=== PATIENT | female | born 2005 | race Caucasian/White ===

== ENCOUNTER 2023-06-05 09:23 | Outpatient (CLI) | payer SELFPAY ==
--- NOTE | 2023-06-05 10:00 | CRLHL7_ITS ---
For Patients: As a result of the Century Cures Act, medical imaging exams and procedure reports are released immediately into your electronic medical record. You may view this report before your referring provider. If you have questions, please contact your health care provider. INDICATION: First trimester scan, establish dates. COMPARISON: None. TECHNIQUE: Real-time lanza-scale imaging of the pelvis was performed. FINDINGS: Right ovary is normal measuring 2.8 x 2.1 x 2.2 cm. Normal left ovary measuring 4.2 x 2.3 x 2.1 cm. Corpus luteal cyst left ovary measuring 1.8 x 1.3 x 1.2 cm. Small fluid collection within the endometrial canal may represent a small gestational sac. This measures 3.3 cm, 5 weeks 0 days. No pole. No yolk sac. Trace physiologic free fluid in the cul-de-sac. IMPRESSION: No pole is present. There may be a small gestational sac in the endometrial canal. Dictated by Sabas Mack MD @ 06/05/2023 11:01:56 AM (Electronically Signed)
== END 2023-06-05 09:24 | disposition home or self-care (01) ==
LOC: US 09:26
PROVIDERS: Visit Provider Advanced Practice Midwife
DX: Z34.91 Encounter for supervision of normal pregnancy, unspecified, first trimester (principal)
CPT/HCPCS: 76817; T1013

== ENCOUNTER 2023-06-05 11:08 | Outpatient (CLI) | payer SELFPAY | END 2023-06-05 11:09 | disposition home or self-care (01) | PROVIDERS: Visit Provider Advanced Practice Midwife | DX: Z34.91 Encounter for supervision of normal pregnancy, unspecified, first trimester (principal); Z3A.01 Less than 8 weeks gestation of pregnancy | CPT/HCPCS: 86592; 86703; 86704; 86706; 86762; 86787; 86803; 86850; 86900; 86901; 87086; 87186; 87340 ==

== ENCOUNTER 2023-06-19 09:11 | Outpatient (CLI) | payer SELFPAY ==
--- NOTE | 2023-06-19 09:15 | CRLHL7_ITS ---
For Patients: As a result of the Century Cures Act, medical imaging exams and procedure reports are released immediately into your electronic medical record. You may view this report before your referring provider. If you have questions, please contact your health care provider. INDICATION: First trimester scan, establish dates. COMPARISON: None. TECHNIQUE: Real-time lanza-scale imaging of the pelvis was performed. FINDINGS: Sonographic imaging demonstrates a single living intrauterine gestation. The embryo demonstrates a regular cardiac rate measuring 128 beats per minute. The embryo`s crown-rump length measurement of 0.7 cm corresponds to a gestational age of 6 weeks 4 days with a sonographic due date of February 08, 2024. There is a normal-appearing yolk sac measuring 3.3 mm. There are no gross abnormalities noted within the embryo at this early state of development. The placenta has not yet developed. The gestational sac has a normal appearance. Subchorionic hemorrhage along superior margin of the gestational sac measuring 1.5 x 0.7 x 0.9 cm. The amount of fluid within the sac appears appropriate for gestational age. The cervix is closed. The myometrium appears normal. The ovaries are of normal size. The right ovary measures 3.5 x 1.8 x 1.5 cm. The left ovary measures 3.9 x 1.9 x 2.5 cm. Corpus luteum cyst of on the left measuring 2.6 x 1.6 x 1.9 cm. There are no suspicious fluid collections noted in the cul-de-sac. IMPRESSION: Normal first trimester OB ultrasound exam. Gestational age calculated at 6 weeks 4 days with a sonographic due date of February 08, 2024. Dictated by Miki Melgoza MD @ 06/19/2023 12:11:09 PM (Electronically Signed)
== END 2023-06-19 09:12 | disposition home or self-care (01) ==
LOC: US 09:11
PROVIDERS: Visit Provider Advanced Practice Midwife
DX: Z34.91 Encounter for supervision of normal pregnancy, unspecified, first trimester (principal); Z3A.01 Less than 8 weeks gestation of pregnancy
CPT/HCPCS: 76817; T1013

== ENCOUNTER 2023-07-17 11:03 | Outpatient (CLI) | payer MEDICAID, SELFPAY ==
[2023-07-17 15:49] LABS: Chlamydia DNA Amplified* NOT DETECTED (No Detected); GC DNA Amplified* NOT DETECTED (No Detected)
== END 2023-07-17 11:04 | disposition home or self-care (01) ==
LOC: NFLDREF 11:03
PROVIDERS: Visit Provider Advanced Practice Midwife
DX: Z34.01 Encounter for supervision of normal first pregnancy, first trimester (principal)
CPT/HCPCS: 87086; 87491; 87591

== ENCOUNTER 2023-09-19 08:18 | Outpatient (CLI) | payer MEDICAID, SELFPAY ==
--- NOTE | 2023-09-19 08:45 | CRLHL7_ITS ---
For Patients: As a result of the Century Cures Act, medical imaging exams and procedure reports are released immediately into your electronic medical record. You may view this report before your referring provider. If you have questions, please contact your health care provider. INDICATION: Evaluate anatomy. COMPARISON: 06.19.23, 06.05.23 TECHNIQUE: Real time lanza scale imaging of the fetus was performed as well as color Doppler analysis of the umbilical vessels. FINDINGS: Sonographic imaging demonstrates a single living intrauterine gestation. Fetus demonstrates a regular cardiac rate of 154 beats per minute. Fetus has a variable position. The placenta lies anteriorly without evidence of placenta previa. The edge of the placenta is located 8.4 cm from the internal cervical os. Amniotic fluid volume appears normal. Single deepest vertical pocket: 5.5 cm. The cervix is closed and measures 3.0 cm in length. The composite ultrasound gestational age is calculated at 20 weeks 3 days with an estimated sonographic due date of 02/03/2024. The estimated weight is 374 grams which lies at the 79th %. The following biometric measurements were obtained: Biparietal diameter: 4.7 cm/20 weeks 2 days 57th% Head circumference: 17.5 cm/20 weeks 0 days 37th% Abdominal circumference: 16.2 cm/21 weeks 2 days 80th% Femur length: 3.3 cm/20 weeks 2 days 49th% The HC/AC ratio measures: 1.08 range (1.07-1.25) On anatomic survey, there is a normal appearance of the cerebral ventricles, cavum septi pellucidi, cisterna magna and cerebellum. The nose, lips, and facial profile appear normal. The cervical, thoracic and lumbar spine are well visualized and appear normal. There is a normal four-chamber heart view and the left and right ventricular outflow tracts appear normal. The diaphragm and stomach appear normal. The kidneys and bladder also appear normal. There is a normal three-vessel cord and cord insertion site. The four extremities appear normal. IMPRESSION: Normal OB ultrasound exam with concordance of clinical and sonographic dating. No intrinsic abnormalities noted on anatomic survey. Dictated by Sabas Mack MD @ 09/19/2023 10:29:11 AM (Electronically Signed)
== END 2023-09-19 08:19 | disposition home or self-care (01) ==
LOC: US 08:19
PROVIDERS: Visit Provider Advanced Practice Midwife
DX: Z34.92 Encounter for supervision of normal pregnancy, unspecified, second trimester (principal); Z3A.20 20 weeks gestation of pregnancy
CPT/HCPCS: 76805; T1013

== ENCOUNTER 2023-11-15 11:13 | Outpatient (CLI) | payer MEDICAID, SELFPAY | END 2023-11-15 11:14 | disposition home or self-care (01) | LOC: NFLDREF 11-20 11:49 | PROVIDERS: Visit Provider Advanced Practice Midwife | DX: Z34.83 Encounter for supervision of other normal pregnancy, third trimester (principal) | CPT/HCPCS: 86592; T1013 ==

== ENCOUNTER 2023-11-20 07:51 | Outpatient (CLI) | payer MEDICAID, SELFPAY | END 2023-11-20 07:52 | disposition home or self-care (01) | LOC: NFLDREF 12:06 | PROVIDERS: Visit Provider Advanced Practice Midwife | DX: R73.09 Other abnormal glucose (principal) | CPT/HCPCS: 82951; 82952 ==

== ENCOUNTER 2023-12-20 10:24 | Outpatient (CLI) | payer MEDICAID, SELFPAY ==
[2023-12-20 10:43] VITALS: PULSE 76; O2SAT 100
--- NOTE | 2023-12-20 10:43 | US_ITS ---
Patient: PEPPER THOMPSON Facility:?[facility] [place] Patient ID:?[id number] Site Patient ID:?[id number]. Site :?2003 Study:?US-Extremity Left LEV-12/20/2023 11:15:15 AM Ordering Physician:CARLO STEARNS Final Report: INDICATION: Leg pain and swelling TECHNIQUE: Ultrasound venous duplex lower left extremity. Compression venous exam was performed using lanza-scale, color Doppler, and spectral Doppler analysis. COMPARISON: None. FINDINGS: Sonographic imaging demonstrates the left common femoral, deep femoral, superficial femoral, popliteal, posterior tibial and greater saphenous and the contralateral right common femoral veins to be fully compressible with normal color Doppler blood flow. IMPRESSION: Normal left lower extremity venous ultrasound, no sign of deep venous thrombosis. Dictated by Twan Crain MD @ 12/20/2023 11:54:09 AM Signed by:?Twan Crain MD @12/20/2023 11:54:09 AM (Electronic Signature)
[2023-12-20 10:48] VITALS: BP 120/67; PULSE 77
--- NOTE | 2023-12-20 11:10 | PC.OBNST ---
NST Note NST Note Start: 12/20/23 10:29 Freq: ONCE Status: Active Protocol: Document 12/20/23 11:08 VERNA (Rec: 12/20/23 11:10 VERNA [email or web address]) NST Note 1 Para (# of births) 0 EDC 02/05/24 Gestational Age In Weeks & Days 33 Weeks & 2 Days High Risk Factors Diabetes - Gestational Diet Controlled Patient Presented with Complaint(s) of Pain,Other Other Complaints Pt. sent over to OB for further eval for complaint of Left lower leg/calf pain and generalized dizziness. Reactive Yes Appropriate for Gestational Age Yes ANGELI Mccarty Date 12/20/23 Reactive Yes Appropriate for Gestational Age Yes ANGELI Frausto Date 12/20/23 OB NST charge Yes Complete NST Note via Write Note Yes The provider's electronic signature indicates the NST is reactive/appropriate for gestational age. *Note to provider: If an addendum is required, open the patient's chart and click on the note under the Nurse/Allied Health tab.
== END 2023-12-20 11:38 | disposition home or self-care (01) ==
LOC: OB OUT 10:26 → OB 10:27
PROVIDERS: Visit Provider Advanced Practice Midwife
DX: O26.893 Other specified pregnancy related conditions, third trimester (principal); M79.605 Pain in left leg; O24.419 Gestational diabetes mellitus in pregnancy, unspecified control; Z3A.33 33 weeks gestation of pregnancy
CPT/HCPCS: 59025; 93971; G0463

== ENCOUNTER 2024-01-10 09:55 | Outpatient (CLI) | payer MEDICAID, SELFPAY ==
--- NOTE | 2024-01-10 10:15 | US_ITS ---
Patient: PEPPER THOMPSON Facility:?[facility] Patient ID:?[id number] Site Patient ID:?[id number]. Site :?2003 Study:?US-OB Pelvis OB F/U GROWTH-01/10/2024 11:01:54 AM Ordering Physician:?NIGEL MYLES CNM Final Report: HISTORY: growth. Gestational diabetes mellitus. New onset of IUGR. COMPARISON: Ob ultrasound from 09/19/2023. TECHNIQUE: Ultrasound examination of the is performed with transabdominal technique. A biophysical profile was also obtained. FINDINGS: A single intrauterine gestation is seen in cephalic presentation with regular cardiac activity at 145 beats per minute. The placenta is anterior and to the right and is free of the cervical os. The placental grade is 2 and the amniotic fluid volume is normal. Single deepest vertical pocket: Normal at 4.9 cm. BPD: 8.5 cm 34 weeks 2 days HC: 31.3 cm 35 weeks 0 days AC: 30.9 cm 34 weeks 6 days FL: 6.3 cm 32 weeks 5 days The estimated age by ultrasound is 34 weeks 2 days, with an estimated date of delivery of 02/19/2024. This represents a decrease in rate of growth compared with the clinical age of 36 weeks 2 days and the previous ultrasound. The estimated date of delivery has been extended by 2 weeks 2 days The ultrasound ratios are normal. The estimated weight of 2400 grams is at the 9th percentile based on the clinical dates. The findings are that of symmetric intrauterine growth retardation. The umbilical artery Doppler ratio of 2.9 is normal. The biophysical profile score is 8 out of a total possible 8, with no points off. IMPRESSION: 1. Single intrauterine gestation in cephalic presentation with regular cardiac activity. 2. Estimated gestational age is 34 weeks 2 days. 3. There has been a decrease in rate of growth, with the estimated date of delivery extended by 2 weeks 2 days. 4. Estimated weight of 2400 grams is at the 9th percentile based on the clinical dates. 5. The findings are that of symmetric intrauterine growth retardation. 6. The umbilical artery Doppler ratio of 2.9 is normal. 7. The biophysical profile score is 8 out of a total possible 8, with no points off. Dictated by Parker Keith MD @ 01/10/2024 8:40:10 PM Signed by:?Parker Keith MD @01/10/2024 8:40:10 PM (Electronic Signature
== END 2024-01-10 09:56 | disposition home or self-care (01) ==
PROVIDERS: Visit Provider Advanced Practice Midwife
DX: O24.419 Gestational diabetes mellitus in pregnancy, unspecified control (principal); Z3A.34 34 weeks gestation of pregnancy
CPT/HCPCS: 76816; 76819; 76820; 87081; 87653; T1013

== ENCOUNTER 2024-01-15 16:55 | Outpatient (CLI) | payer MEDICAID, SELFPAY ==
--- NOTE | 2024-01-15 17:00 | US_ITS ---
Patient: PEPPER THOMPSON Facility:?[facility] Patient ID:?[id number] Site Patient ID:?[id number]. Site :?2003 Study:?US-OB Pelvis OB BPP W/ UA DOPPLER-01/15/2024 5:35:25 PM Ordering Physician:?NIGEL MYLES CNM Final Report: INDICATION: IUGR COMPARISON: 01/10/2024 TECHNIQUE: Real time lanza scale imaging of the fetus was performed as well as color Doppler and spectral Doppler analysis of the umbilical artery. Without non-stress testing. FINDINGS: Sonographic imaging demonstrates a single living intrauterine gestation. Fetus demonstrates a regular cardiac rate of 176 beats per minute. Fetus has a vertex position. The umbilical artery demonstrates adequate diastolic blood flow. The S/D ratio measures 3.0. The amniotic fluid volume appears normal and there is a single deepest pocket measurement of 6.1 cm. The fetus was active and demonstrated normal breathing movements. There was normal flexion and extension of the trunk and extremities. IMPRESSION: Normal biophysical profile score of 8 out of 8. Dictated by Sabas Mack MD @ 01/16/2024 12:52:52 PM Signed by:?Sabas Mack MD @01/16/2024 12:52:52 PM (Electronic Signature)
== END 2024-01-15 16:56 | disposition home or self-care (01) ==
PROVIDERS: Visit Provider Advanced Practice Midwife
DX: O36.5990 Maternal care for other known or suspected poor fetal growth, unspecified trimester, not applicable or unspecified (principal)
CPT/HCPCS: 76819; 76820; T1013

== ENCOUNTER 2024-01-21 16:03 | Outpatient (CLI) | payer MEDICAID, SELFPAY ==
--- NOTE | 2024-01-21 16:00 | US_ITS ---
Patient: PEPPER THOMPSON Facility:?[facility] Patient ID:?[id number] Site Patient ID:?[id number]. Site :?2003 Study:?US-OB Pelvis OB BPP W/ UA DOPPLER-01/21/2024 4:40:04 PM Ordering Physician:NIGEL MOHAMUD CNM Final Report: OB ULTRASOUND ROSEMARY by US: 02/05/2024. GA: 37 w, 6 d. Single. INDICATION: IUGR. CERVIX: Not visualized. POSITIONING: Vertex. AMNIOTIC FLUID: 7.6 cm. BIOPHYSICAL PROFILE: Total score: 8. Gross body movements: 2. tone: 2. Respiratory activity: 2. Amniotic fluid: 2. PLACENTA: Technique: Transabdominal. PLACENTA POSITION: Anterior. DOPPLER: heart rate: 155 bpm. Umbilical artery S/D: 2.8 IMPRESSION: 1. Normal biophysical profile score of 8/8. 2. Umbilical artery S/D ratio 2.8. Rafael Garcia M.D. Body/Diagnostic Radiologist [email or web address] ERICKSON/fidelina D& Transcribed: 1:14 p.alexis kitchen/Dictated by: Rafael Garcia MD @ 01/22/2024 11:01:00 AM Signed by:?Rafael Garcia MD @01/22/2024 2:54:55 PM (Electronic Signature)
== END 2024-01-21 16:04 | disposition home or self-care (01) ==
LOC: US 16:03
PROVIDERS: Visit Provider Advanced Practice Midwife
DX: O36.5930 Maternal care for other known or suspected poor fetal growth, third trimester, not applicable or unspecified (principal); Z3A.37 37 weeks gestation of pregnancy
CPT/HCPCS: 76819; 76820; T1013

== ENCOUNTER 2024-01-22 16:31 | Inpatient (IN) | payer MEDICAID, SELFPAY ==
[2024-01-22 17:00] VITALS: PULSE 80; O2SAT 99
[2024-01-22 17:03] VITALS: BP 124/71; PULSE 78; RESP 16; TEMP 36.9
[2024-01-22 17:16] VITALS: BMI 35.7
--- NOTE | 2024-01-22 18:31 | W.PM.LDBA ---
Subjective History of Present Illness Date Seen: 01/22/24 Narrative: Patient is being admitted to Labor and Delivery for IOL for IUGR at 8.5% and GDM diet controlled. She is a 18 year old at 38.0 weeks gestation. Her full history and physical was dictated by Noreen Stover CNM on 01/16/24. Please see this for details. An in person spanish interpreter was present for the duration of our conversation. Discussed in depth induction options including Cytotec, Pitocin, AROM, Cervidil, And Cook catheter. Discussed risks and benefits of each. Recommended Cytotec or Cook given her cervical dilation in clinic, gestation and primiparous status. She would like to proceed with PO cytotec. Offered a cervical exam but she denies any contractions since her check yesterday so declines. Vertex by Sudhakar today and exam yesterday. She denies leaking fluids, discharge, or bleeding and is appreciating good movement. Discussed good sleep and encouraged Vistaril to which she is agreeable. She denies questions of concerns at this time. Specific Issues/Plans Lithuanian speaking, spanish interpreter needed Fiance': Tj H&P done by Noreen Stover CNM on 01/16/24 1. Hx irregular periods -LMP 01/19/23 with positive preg test on 05/29/23 dated by 1st trimester US 2. Asymptomatic UTI at first OB Enterobacter aerogenes treated with Cefdinir UC 07/17-neg 3. Epigastric pain from heartburn pepcid started 4. Gestational Diabetic failed 3 hour test -Growth u/s Q 4 weeks starting 32 wks -36 weeks: EFW 8.5% -40 wks: -Delivery recommended 39.0 - 40.6 weeks 5. IUGR at 36 wks EFW 8.5% -weekly BPP with dopplers -Delivery 38.0-39.0 wks COVID: declined Flu: 06/19/2023 TDAP: 01/03/2024 32wk Mental Health: 12/20/2023 34wk Hgb: 01/03/2024 OB - Problem Based A/P Additional Plan (1) Encounter for induction of labor: Status: Acute (2) IUGR (intrauterine growth restriction): Status: Acute (3) Gestational diabetes: Status: Acute Plan ASSESSMENT:? at 38.0 weeks gestation? GBS negative? complicated by IUGR and diet controlled gestational diabetes ? IOL? ?? PLAN:? 1. Reviewed risks and benefits of IOL with pitocin vs cytotec vs Cook catheter. Pt prefers PO cytotec. Pitocin to follow if needed.? 2. Candidate for analgesia of choice. Unsure what she desires for labor pain management. ? 3. Anticipate ? 4. Monitoring per Cytotec policy. 5. Encouraged to consider medicaitons for sleep overnight.? Delivery/Labor/Induction Plan Plan: induction Induction method: per misoprostol protocol OB Result Labs Blood Type: A (+) positive Rubella: immune GBS Status: negative OB Exam Physical Exam Vital signs: Temp Pulse Resp BP Pulse Ox 98.5 F 78 16 124/71 99 01/22/24 17:03 01/22/24 17:03 01/22/24 17:03 01/22/24 17:03 01/22/24 17:00 Narrative: Psychiatric:? Alert and oriented x3? HEENT:? Normocephalic, atraumatic? Neck:? Supple without adenopathy or thyromegaly? Lungs:? Clear to auscultation bilaterally? Heart:? Regular rate and rhythm, no murmur, rub or gallop? Abdomen:? Soft, nontender, and gravid? Extremities:? No edema or erythema? Detailed Labor and Delivery Exam Patient Gravid: Yes Dilation (cm): 1 (per clinic exam yesterday ) Contraction Frequency: rare and patient denies feeling Fetus (Single) Amniotic Membrane Status: intact Heart Rate Baseline: 135 Monitor Accelerations: Present Monitor Decelerations: None Machine Adjuster Leader Variability: Moderate (6-25)
[2024-01-22 18:37] VITALS: BP 137/77; PULSE 72; RESP 16; TEMP 36.9
[2024-01-22] MEDS: miSOPROStoL 25 MCG/0.25 TABLET PO ×2 (18:38→21:31)
[2024-01-22 19:13] VITALS: BP 134/77; PULSE 79; PULSE 81; O2SAT 98
[2024-01-22 21:32] VITALS: BP 136/81; PULSE 64; TEMP 36.4
[2024-01-22] MEDS: hydrOXYzine pamoate 25 MG CAPSULE 100 MG PO (22:59)
[2024-01-23] VITALS (69 sets, daily range): BP systolic 118–164; BP diastolic 61–106; PULSE 63–107; RESP 18; TEMP 36.6–37.1; O2SAT 94–100
[2024-01-23] MEDS: miSOPROStoL 25 MCG/0.25 TABLET 50 MCG PO (00:29)
[2024-01-23 06:39] LABS: Basophils Percent Auto 0.2 % (0.0-3.0); Eosinophils Percent Auto 1.7 % (0.0-7.0); Hematocrit 33.2 % (33.0-51.0); Hemoglobin* 11.1 gm/dL (12.0-16.0); Immature Granulocytes Pct Auto 0.5 %; Lymphocytes Percent Auto 22.6 % (20-44); Mean Corpuscular HGB Conc 33 gm/dL (32-36); Mean Corpuscular Hemoglobin 27 pg (26-34); Mean Corpuscular Volume 80 fL (80-100); Monocytes Percent Auto 5.7 % (0.0-11.0); Neutrophils Percent Auto 69.3 % (42.0-72.0); Platelet Count* 314 K/uL (140-440); RDW Coefficient of Variation % 15.8 % (11.5-15.5); Red Blood Count 4.13 m/uL (4.00-5.20); White Blood Count* 11.39 K/uL (4.50-11.00)
[2024-01-23 07:20] LABS: Slide Review Reflex No
--- NOTE | 2024-01-23 07:35 | PM.OBPNL ---
Subjective Date Seen: 01/23/24 Narrative: Alona is a 18 yo G1 at 38 1/7 weeks gestation here for IOL for IUGR and GDM. She is mauritian speaking. Chip Crusher Operator present for check in this morning. She is supported in labor by her partner. Her induction was started last night by cytotec. She received 3 doses over night and reports mild cramping/contractions. Objective Exam: Objective: Constitutional: Alert and oriented x3, mild distress, coping well; sleepy Vital signs stable, see nurse documentation Abdomen: gravid, contractions palpate mild with contractions and soft between Cervix: 2 cm/40%/-1 station/vertex, can still move baby up in pelvis NST: 135 bpm/moderate variability/15x15 accelerations/no decelerations/irregular contractions every 1-5 Vital Signs: Last Vital Signs Temp 97.8 F 01/23/24 04:30 Pulse 76 01/23/24 04:26 Resp 16 01/22/24 18:37 BP 118/74 01/23/24 04:26 Pulse Ox 98 01/23/24 03:49 Contractions Monitor mode: External Assessment Assessment: induction ongoing and early labor Status: Category l Heart Rate Baseline: 135 Plan Plan: ASSESSMENT:? 18 at 38.1 weeks gestation? complicated by:?IUGR and GDM Labor type: Induced, early labor? Category 1 FHR pattern.?? Labor complicated by: IUGR? GBS negative? ? PLAN:? 1. Routine intrapartum cares as ordered. Discussed IOL options at this time. Consider cytotec (already had 3 doses) versus starting pitocin. Recommend pitocin. Could consider AROM later this morning. Patient agrees with plan. 2. Monitoring per policy, continuous with pitocin? 3. Uncertain about pain options. Candidate for analgesia of choice when desired.?? 4. Patient encouraged to reposition and ambulate to promote physiologic labor and .? 6. Anticipate ?
[2024-01-23] MEDS: OXYTOCIN 30 unit/500 ML in NS 30 UNIT/500 ML BAG IVPB (08:44)
[2024-01-23] MEDS: LACTATED RINGERS 1000 ML 1,000 ML 125 ML IV (08:45)
[2024-01-23] MEDS: ONDANSETRON 2 MG/ML inj 4 MG IV (16:45)
--- NOTE | 2024-01-23 17:13 | PM.OBPNL ---
Subjective Time Seen by Provider: 16:20 Date Seen: 01/23/24 Narrative: Alona is a 18 yo G1 at 38.1 weeks here for IOL for IUGR and GDM. She is supported in labor by her partner. She has been working more to cope with contractions in the last hour. She attempted the shower/tub but is now requesting something more. She is very tense and feels like she can't relax. She is tearful and having some nausea. Her labor induction was started with 3 doses of cytotec overnight, pitocin started this morning, and AROM of clear fluid around 1345 this afternoon. Her pitocin continues to be titrated based on her contraction pattern. Her blood sugars have been stable throughout the day. Objective Exam: Objective: Constitutional: Alert and oriented x3, moderate distress, coping ok but tearful and very tense appearing Vital signs stable, see nurse documentation Abdomen: gravid, contractions palpate moderate with contractions and soft between Cervix: 4 cm/80%/-1-0 station/vertex NST: 135 bpm/moderate variability/15x15 accelerations/no decelerations/contractions every 1-4 minutes Vital Signs: Last Vital Signs Temp 98.3 F 01/23/24 15:32 Pulse 67 01/23/24 16:37 Resp 16 01/22/24 18:37 BP 155/90 H 01/23/24 16:37 Pulse Ox 100 01/23/24 17:12 Contractions Monitor mode: External Assessment Status: Category l Monitor Accelerations: Present Monitor Decelerations: None Plan Plan: ASSESSMENT:? 18 at 38.1 weeks gestation? complicated by:?IUGR and GDM Labor type: Induced, early labor? Category 1 FHR pattern.?? Labor complicated by: IUGR?and GDM Elevated BP, recheck was mild range GBS negative? ? PLAN:? 1. Routine intrapartum cares as ordered. Discussed IOL options at this time. Continue pitocin. Patient agrees with plan. Dr. Herrera is covering me while I am away from the hospital from [phone]. 2. Monitoring per policy, continuous with pitocin? 3. Uncertain about pain options. Candidate for analgesia of choice when desired.?She is now requesting epidural.? 4. Patient encouraged to reposition and ambulate to promote physiologic labor and .? 5. Elevated BP, initially severe range, repeat was mild range. MD notified. Labs ordered. 6. Anticipate ?
[2024-01-23] MEDS: ROPIVACAINE 0.2% 100 ml 100 ML 11 MG EPIDURAL (17:24)
[2024-01-23] MEDS: LIDOCAINE 2% (PF) 5 ML VIAL EPIDURAL (17:25)
[2024-01-23 17:51] LABS: Alanine Aminotransferase* 39 U/L (4-35); Aspartate Amino Transferase* 45 U/L (12-35); Blood Urea Nitrogen* 11 mg/dL (5-24); Creatinine* 0.4 mg/dL (0.5-1.5); Est. Creatinine Clearance* 284.51; Estimated Glomerular Filt Rate 145 ml/min
--- NOTE | 2024-01-23 18:05 | P.ANBPRC_ITS ---
[facility] Medical History (Updated 01/22/24 @ 18:38 by Queenie Adler CNM) Irregular menses ?N92.6 - Irregular menstruation, unspecified (ICD-10) Family History (Updated 06/05/23 @ 13:49 by Magi Stover CNM) Father Diabetes High cholesterol Social History (Updated 06/05/23 @ 13:45 by Magi Stover CNM) Narrative: SOCIAL? ? Education: senior in high school? ? Work: [employer], serving food? ? Partner: Tj? not , engaged, works at [employer]? Lives with: Tj? ? Pets: no? ? Abuse: Denies past, Safe at home with current partner ? ? ? Special Diet: Denies? ? Ok with a blood transfusion: yes? ? Culture or restoration beliefs: denies? RISK FACTORS? ? Exercise Times/wk: walks to work daily, about 20 minutes ? ? Depression/Anxiety: denies? ? Previous Treatments NA ? Therapy NA GUADALUPE: 1 PHQ 9: 4? ? Seat Belt Use: Routinely ? Smoking: Denies past/present? ?Vape, not current, quit two months ago Alcohol/day: Denies while , prior twice a month Caffeine: coffee small amount? ? Drug Use: Denies past/present? What is your current living situation?: I presently have a place to live Problems where you live: no known problems In the past 12 months, utilities in danger of being shut off: no In past 12 months, lack of transportation kept you from medical appts, meetings, work, or getting things needed for daily living: yes In the past 12 mos, have been you worried that your food would run out before you had money to buy more?: never true In the past 12 mos, the food you bought just didn't last and you didn't have money to buy more?: never true Smoking Status: Light tobacco smoker How often does anyone, including family, friends and others, physically hurt you : never How often does anyone, including family, friends and others, insult or talk down to you: never How often does anyone, including family, friends and others, threaten you with harm: never How often does anyone, including family, friends and others, scream or curse at you: never Little interest or pleasure in doing things: several days Feeling down, depressed, or hopeless: several days Meds Home Medications and Allergies Home Medications ?Medication ?Instructions ?Recorded ?Confirmed ?Type docosahexaenoic acid 200 mg 200 mg PO DAILY 06/05/23 01/22/24 History capsule ( DHA) Allergies Allergy/AdvReac Type Severity Reaction Status Date / Time avocado Allergy Severe Hives Verified 01/21/24 16:53 Results Labs Labs: Laboratory Results - last 24 hr 01/23/24 01/23/24 06:15 16:58 WBC 11.39 H RBC 4.13 Hgb 11.1 L Hct 33.2 MCV 80 MCH 27 MCHC 33 RDW Coeff of Moses 15.8 H Plt Count 314 Neut % (Auto) 69.3 Lymph % (Auto) 22.6 [place] % (Auto) 5.7 Eos % (Auto) 1.7 Baso % (Auto) 0.2 Neut # (Auto) 7.90 H Lymph # (Auto) 2.60 [place] # (Auto) 0.60 Eos # (Auto) 0.20 Baso # (Auto) 0.00 Abs Immat Gran (auto) 0.10 Imm/Tot Granulo (auto) 0.5 BUN 11 Creatinine 0.4 L Estimated Creat Clear 284.51 Estimated GFR 145 AST 45 H ALT 39 H Blood Type A Positive Antibody Screen NEGATIVE Vital Signs Vital Signs: Last Vital Signs Temp 98.4 F 01/23/24 18:01 Pulse 76 01/23/24 17:49 Resp 16 01/22/24 18:37 BP 134/72 01/23/24 17:49 Pulse Ox 99 01/23/24 17:42 Weight: 80.331 kg Height: 149.86 cm Anesthesia Procedures Epidural Insertion Patient Location: OB Start Time: 16:55 Stop Time: 17:55 Start Date: 01/23/24 Stop Date: 01/23/24 Reason for Block: procedure for pain Patient Position: sitting Performed By: Lian Irene Preanesthetic Checklist: IV checked, risks and benefits discussed, monitors and equipment checked, pre-op evaluation, timeout performed and anesthesia consent Prep: chlorhexidine gluconate Monitoring: blood pressure monitoring, continuous pulse oximetry and heart rate Approach: midline Vertebral Space: lumbar (1-5) Epidural Technique: LYNN saline Needle Type: Tuohy needle Injection Technique: continuous catheter (continuous catheter) Needle gauge: 17 Needle Length (cm): 10 cm Needle Insertion Depth (cm): 7 Catheter Gauge: 19 Catheter Type: multi-orifice Catheter at skin depth (cm): 15 Test Dose Result: negative and lidocaine 1.5% with epinephrine 1 to 200,000
[2024-01-23] MEDS: LACTATED RINGERS 1000 ML 1,000 ML 117 ML IV (18:33)
[2024-01-23] MEDS: LACTATED RINGERS 1000 ML 1,000 ML 617 ML IV (20:28)
[2024-01-23 20:41] LABS: Total Protein Urine 72 mg/dL
[2024-01-23 20:42] LABS: Creatinine Urine 12.6 mg/dL
--- NOTE | 2024-01-23 22:39 | W.PM.VAGDE_ITS ---
OB Procedure Vag Delivery Mother Details Mother Details: The patient is a 18 year-old, 1, Para 1, admitted on 01/22/24 at 38.1Days gestation. : 1 Para: 1 Weeks Gestation: 38.1 Admission Date: 01/23/24 Additional Details Amniotic Membrane Status: intact Amniotic Membrane Rupture Date: 01/23/24 Amniotic Membrane Rupture Time: 13:48 Amniotic Membrane Fluid Description: Clear Analgesia/Anesthesia Type: Epidural Waterbirth: No Pitcoin: Yes Intrapartal Events: Labor Induction and Distress Labor Onset: 14:00 Complete: 20:10 Pushin:29 Heart: heart tones during second stage were reassuring with minimal variability. Difficult to trace during pushing but good return to baseline noted between contractions. Delivery Details Delivery Date: 01/23/24 Delivery Time: 21:08 Infant Gender: Female Viability: Alive; Heart Rate Present Position at Delivery: OA Delivery Details: Patient was admitted for induction of labor for IUGR and GDM and progressed normally. She received 3 doses of Cytotec overnight, then Pitocin throughout the morning before AROM of clear fluid at 1348. She received an epidural for pain management. Pitocin was turned off around 1900 due to repetitive decelerations. Patient then progressed on her own and was complete with next exam. Patient was complete at 2009 and pushing at 2028. of a viable female at 2108 in semi- fowlers on the bed. Vertex delivered OA. No nuchal cord or shoulder. Body delivered easily and without incident. passed to mothers abdomen with a vigorous cry. Cord was clamped and cut at > 5 minutes. APGARS were 8 at one minute and 9 at five minutes respectively. Mouth was bulb suctioned. Intact placenta with a 3 vessel cord delivered spontaneously at 2123. Fundus firm. Intact. QBL 25 cc. Mother and baby stable; mother plans to breastfeed. Infant weight pending. 1 Minute Interval Total Score: 8 5 Minute Interval Total Score: 9 Additional Details Shoulder Dystocia: No Placenta Delivery Time: 21:24 Placental Delivery Description: Spontaneous Blood Loss: 25 Laceration: None Blood Loss Measurement Type: QBL Bakri Used: No Sponge/Need Count Correct: Yes Cord Vessel Description: 3 Vessels Event Summary Status: Mother and infant were stable after delivery. During recovery, patient had another elevated BP of 164/92. This is the second BP of >160/90's the patient has had, greater than 4 hours apart. Labs were drawn at first elevated BP and w ere WNL with exception of P/c ratio which was not resulted. The P/c ratio came back after delivery at 5.7, collected by catheter specimen. Plan of care was discussed with Dr. Herrera who recommends initiation of Magnesium 4g bolus with 2g maintenance. Labs ordered for every 6 hours. OB to assume care until discharge. RN will continue to monitor BP and treat per protocol as needed and notify OB. Disposition: floor
[2024-01-23] MEDS: MAGNESIUM IV 4 GM/100 ML PIGGYBACK IVPB (23:08)
[2024-01-23] MEDS: MAGNESIUM Infusion 40 GM/1,000 ML IV.SOLN IVPB (23:50)
[2024-01-24] VITALS (18 sets, daily range): BP systolic 111–144; BP diastolic 65–85; PULSE 72–102; RESP 15–18; TEMP 36.3–36.6; O2SAT 92–100
[2024-01-24 01:26] LABS: Hemoglobin* 10.4 gm/dL (12.0-16.0); Mean Corpuscular HGB Conc 34 gm/dL (32-36); Mean Corpuscular Hemoglobin 27 pg (26-34); Mean Corpuscular Volume 80 fL (80-100); Platelet Count* 283 K/uL (140-440); Red Blood Count 3.89 m/uL (4.00-5.20); White Blood Count* 17.07 K/uL (4.50-11.00)
[2024-01-24 01:31] LABS: Slide Review Reflex No
[2024-01-24 01:46] LABS: Alanine Aminotransferase* 35 U/L (4-35); Aspartate Amino Transferase* 38 U/L (12-35); Blood Urea Nitrogen* 7 mg/dL (5-24); Creatinine* 0.4 mg/dL (0.5-1.5); Est. Creatinine Clearance* 284.51; Estimated Glomerular Filt Rate 145 ml/min
[2024-01-24] MEDS: IBUPROFEN 600 MG TABLET PO ×4 (02:25→22:35)
[2024-01-24] MEDS: ACETAMINOPHEN 500 MG TABLET 1000 MG PO ×2 (06:59→17:55)
[2024-01-24 07:05] LABS: Hematocrit 31.4 % (33.0-51.0); Hemoglobin* 10.5 gm/dL (12.0-16.0); Mean Corpuscular HGB Conc 33 gm/dL (32-36); Mean Corpuscular Hemoglobin 27 pg (26-34); Mean Corpuscular Volume 81 fL (80-100); Platelet Count* 285 K/uL (140-440); Red Blood Count 3.89 m/uL (4.00-5.20); White Blood Count* 15.97 K/uL (4.50-11.00)
[2024-01-24 07:24] LABS: Slide Review Reflex No
[2024-01-24 07:26] LABS: Alanine Aminotransferase* 33 U/L (4-35); Aspartate Amino Transferase* 43 U/L (12-35); Blood Urea Nitrogen* 6 mg/dL (5-24); Creatinine* 0.4 mg/dL (0.5-1.5); Est. Creatinine Clearance* 284.51; Estimated Glomerular Filt Rate 145 ml/min
[2024-01-24] MEDS: LACTATED RINGERS 1000 ML 1,000 ML 75 ML IV ×2 (07:30→21:06)
--- NOTE | 2024-01-24 07:48 | PM.OBPNVD1 ---
OB - PN:Subj Subjective Date Seen: 01/24/24 Interval history: A little bit dizzy Patient comments OB post-: pain well controlled and tolerating diet infant status: bottle feeding status: exclusively bottle feeding Narrative: Alona is a 18 y.o. who was admitted to [facility] for IOL due to GDMA1, IUGR. ?She had an uncomplicated NVD .?She did have 2 severely elevated blood pressures more than 4 hours apart, proteinuria and given diagnosis of preeclampsia with severe features. The patient feels well, a little dizzy from medication, but has been able to stand up and walk to utilize the restroom without significant symptoms. ?The pain is well controlled with current medications. ?She has no new complaints. ?She is bottle feeding, but interested in , tried to latch baby but that has not been working well.? the patient has done well.? Vitals have been stable.? She has remained afebrile.? Has a good appetite, is tolerating a general diet. ?She is voiding without difficulty.? She is passing gas and has not had a bowel movement.?? Has Small amount of rubra lochia. Blood pressures elevated right after delivery but currently normal, no need for IV antihypertensive medications at the moment, no LIFE SCIENCES DIRECTOR irritability symptoms. OB - PN: Obj Exam Physical Exam: Vital signs: Temp Pulse Resp BP Pulse Ox O2 Del Method 97.9 F 75 16 119/81 98 Room Air 01/24/24 04:15 01/24/24 06:45 01/24/24 06:45 01/24/24 06:45 01/24/24 06:45 01/24/24 06:45 Narrative: VITAL SIGNS: As noted above. GENERAL APPEARANCE: Alert, cooperative female in no acute distress. MOOD & AFFECT: Normal. HEART: Regular rate and rhythm without murmurs. LUNGS: Lungs are clear to auscultation bilaterally. No crackles, wheezes, or rhonchi. ABDOMEN: Soft, non-distended and nontender. Well contracted uterus at umbilicus. : Normal lochia. EXTREMITIES: B/L +1 potting edema up to ankles. Well perfused. Nontender. NEURO: Intact. OB - PN: Obj Data Labs Labs: Laboratory Results - last 24 hr 01/23/24 01/23/24 01/24/24 16:58 19:55 01:15 WBC 17.07 H RBC 3.89 L Hgb 10.4 L Hct 31.0 L MCV 80 MCH 27 MCHC 34 Plt Count 283 BUN 11 7 Creatinine 0.4 L 0.4 L Estimated Creat Clear 284.51 284.51 Estimated GFR 145 145 AST 45 H 38 H ALT 39 H 35 Urine Creatinine 12.6 Protein/Creatinin Ratio 5.70 H Urine Total Protein 72 01/24/24 06:35 WBC 15.97 H RBC 3.89 L Hgb 10.5 L Hct 31.4 L MCV 81 MCH 27 MCHC 33 Plt Count 285 BUN 6 Creatinine 0.4 L Estimated Creat Clear 284.51 Estimated GFR 145 AST 43 H ALT 33 Urine Creatinine Protein/Creatinin Ratio Urine Total Protein OB - PN: A/P Delivery Assessment and Plan (1) Pre-eclampsia, severe, condition: Status: Acute Assessment and Plan: 1. Continue magnesium sulfate infusion until around 11pm tonight. Discussed with patient recommendation for continued observation at least until Saturday. Patient agrees with that plan. 2. Continue assessments every 2 hours, labs every 6 hours, close monitoring of I/O, magnesium toxicity. 3. If there is persistently elevated blood pressures throughout the day will start PO antihypertensive meds. 4. Support , patient interested in pumping. (2) Gestational diabetes: Status: Acute Assessment and Plan: FBS tomorrow morning. (3) Anemia: Status: Acute Assessment and Plan: Add oral iron today. Plan day: 1 Plan: routine care
--- NOTE | 2024-01-24 09:55 | PM.ANPOST ---
Post Anesthesia Note Post Anesthesia Note Patient seen: Inpatient Respiratory Status: adequate Cardiovascular Status: adequate Mental Status: baseline Pain: adequate Temp: baseline Anesthetic awareness: N/A Complications: none Follow care: none
[2024-01-24] MEDS: DOCUSATE SODIUM 100 MG CAPSULE PO (10:14)
[2024-01-24] MEDS: FERROUS SULFATE 325 MG TABLET PO (10:14)
--- NOTE | 2024-01-24 10:17 | PC.SOCIAL ---
Discharge planning: floor worker well service met with pt today in her room. The hospital statement services representative, Karuna, was also present for the meeting/conversation. floor worker well service provided pt with resources for [facility], as pt lives in [place] at [facility]. Pt stated that she is already connected with WIC in [facility]. Pt stated that she would like to have a public health nurse come to her house after she discharges from the hospital. floor worker well service connected with pt's nurse who will put in the referral to public health([facility]). floor worker well service also provided pt with information for [facility] [employer] and [facility] [place]. Pt is familiar with services that [facility] offers. floor worker well service also provided pt with information on parenting classes in [place] and The [employer] class that is offered through [facility]. Pt was thankful for the assistance and information. Social work to follow-up as needed.
[2024-01-24 13:46] LABS: Hematocrit 30.1 % (33.0-51.0); Hemoglobin* 10.1 gm/dL (12.0-16.0); Mean Corpuscular HGB Conc 34 gm/dL (32-36); Mean Corpuscular Hemoglobin 27 pg (26-34); Mean Corpuscular Volume 80 fL (80-100); Platelet Count* 286 K/uL (140-440); Red Blood Count 3.75 m/uL (4.00-5.20); White Blood Count* 13.48 K/uL (4.50-11.00)
[2024-01-24 14:00] LABS: Slide Review Reflex No
[2024-01-24 14:09] LABS: Alanine Aminotransferase* 37 U/L (4-35); Aspartate Amino Transferase* 50 U/L (12-35); Blood Urea Nitrogen* 7 mg/dL (5-24); Creatinine* 0.4 mg/dL (0.5-1.5); Est. Creatinine Clearance* 275.19; Estimated Glomerular Filt Rate 145 ml/min
[2024-01-24 14:19] LABS: Magnesium* 4.6 mg/dL (1.5-2.6)
[2024-01-24] MEDS: MAGNESIUM Infusion 40 GM/1,000 ML IV.SOLN IVPB (17:54)
[2024-01-24 19:44] LABS: Hematocrit 30.5 % (33.0-51.0); Hemoglobin* 10.2 gm/dL (12.0-16.0); Mean Corpuscular HGB Conc 33 gm/dL (32-36); Mean Corpuscular Hemoglobin 27 pg (26-34); Mean Corpuscular Volume 81 fL (80-100); Platelet Count* 304 K/uL (140-440); Red Blood Count 3.78 m/uL (4.00-5.20); White Blood Count* 13.78 K/uL (4.50-11.00)
[2024-01-24 20:07] LABS: Slide Review Reflex No
[2024-01-24 20:16] LABS: Alanine Aminotransferase* 39 U/L (4-35); Aspartate Amino Transferase* 49 U/L (12-35); Blood Urea Nitrogen* 8 mg/dL (5-24); Creatinine* 0.5 mg/dL (0.5-1.5); Est. Creatinine Clearance* 220.15; Estimated Glomerular Filt Rate 138 ml/min
[2024-01-24 20:19] LABS: Magnesium* 4.5 mg/dL (1.5-2.6)
[2024-01-25 01:18] LABS: Hematocrit 29.2 % (33.0-51.0); Hemoglobin* 9.8 gm/dL (12.0-16.0); Mean Corpuscular HGB Conc 34 gm/dL (32-36); Mean Corpuscular Hemoglobin 27 pg (26-34); Mean Corpuscular Volume 81 fL (80-100); Platelet Count* 264 K/uL (140-440); White Blood Count* 12.05 K/uL (4.50-11.00)
[2024-01-25 01:21] LABS: Slide Review Reflex No
[2024-01-25 01:31] LABS: Alanine Aminotransferase* 34 U/L (4-35); Aspartate Amino Transferase* 41 U/L (12-35); Blood Urea Nitrogen* 9 mg/dL (5-24); Creatinine* 0.5 mg/dL (0.5-1.5); Est. Creatinine Clearance* 220.15; Estimated Glomerular Filt Rate 138 ml/min
[2024-01-25 02:34] VITALS: BP 122/82; PULSE 68; RESP 18; TEMP 36.5; O2SAT 98
[2024-01-25] MEDS: ACETAMINOPHEN 500 MG TABLET 1000 MG PO ×3 (02:37→20:32)
[2024-01-25 05:29] VITALS: BP 124/82; PULSE 62; RESP 18; TEMP 36.6; O2SAT 99
[2024-01-25 08:02] LABS: Hematocrit 31.5 % (33.0-51.0); Hemoglobin* 10.3 gm/dL (12.0-16.0); Mean Corpuscular HGB Conc 33 gm/dL (32-36); Mean Corpuscular Hemoglobin 27 pg (26-34); Mean Corpuscular Volume 81 fL (80-100); Platelet Count* 280 K/uL (140-440); Red Blood Count 3.87 m/uL (4.00-5.20); Slide Review Reflex No; White Blood Count* 12.95 K/uL (4.50-11.00)
[2024-01-25 08:11] LABS: Creatinine* 0.4 mg/dL (0.5-1.5); Est. Creatinine Clearance* 273.42; Estimated Glomerular Filt Rate 145 ml/min
[2024-01-25 08:12] LABS: Alanine Aminotransferase* 34 U/L (4-35); Aspartate Amino Transferase* 40 U/L (12-35); Blood Urea Nitrogen* 10 mg/dL (5-24)
[2024-01-25 08:50] VITALS: BP 127/72; PULSE 74; RESP 16; TEMP 36.6; O2SAT 98
[2024-01-25] MEDS: DOCUSATE SODIUM 100 MG CAPSULE PO (09:14)
[2024-01-25] MEDS: IBUPROFEN 600 MG TABLET PO ×2 (09:14→16:11)
[2024-01-25] MEDS: FERROUS SULFATE 325 MG TABLET PO (09:23)
--- NOTE | 2024-01-25 09:27 | P.OBPN_ITS ---
OB - PN:Subj Subjective Time Seen by Provider: 09:27 Date Seen: 01/25/24 Narrative: Overnight patient had no complaints. Her pain is well controlled on oral pain medications. She is tolerating a regular diet. She has passed flatus. She is ambulating without difficulty. Lochia is scant. She is urinating without pereira. Patient denies chest pain, SOB, n/v, headache, RUQ pain, vision changes, dizziness. S/p 24 hour of magnesium sulfate. BP wnl this AM. In person Sales Expert used for rounding OB - PN: Obj Exam Physical Exam: Vital signs: Temp Pulse Resp BP Pulse Ox O2 Del Method 97.9 F 74 16 127/72 98 Room Air 01/25/24 08:50 01/25/24 08:50 01/25/24 08:50 01/25/24 08:50 01/25/24 08:50 01/25/24 08:50 Narrative: Physical exam: General: No acute distress Psych: Alert and oriented x4, full affect HEENT: Normocephalic, atraumatic Heart: Regular rate and rhythm, no murmur rub or gallop Lungs: Clear to auscultation bilaterally Abdomen: Normoactive bowel sounds, soft, no tenderness, rebound, or guarding, no masses. Uterus 2 cm below umbilicus Skin: No lesions or rashes Lower extremities: No edema or erythema Pelvic exam: Scant vaginal bleeding OB - PN: Obj Data Labs Labs: Laboratory Results - last 24 hr 01/24/24 01/24/24 01/25/24 13:34 19:32 01:08 WBC 13.48 H 13.78 H 12.05 H RBC 3.75 L 3.78 L 3.60 L Hgb 10.1 L 10.2 L 9.8 L Hct 30.1 L 30.5 L 29.2 L MCV 80 81 81 MCH 27 27 27 MCHC 34 33 34 Plt Count 286 304 264 BUN 7 8 9 Creatinine 0.4 L 0.5 0.5 Estimated Creat Clear 275.19 220.15 220.15 Estimated GFR 145 138 138 Magnesium 4.6 H* 4.5 H* 3.0 H AST 50 H 49 H 41 H ALT 37 H 39 H 34 01/25/24 07:46 WBC 12.95 H RBC 3.87 L Hgb 10.3 L Hct 31.5 L MCV 81 MCH 27 MCHC 33 Plt Count 280 BUN 10 Creatinine 0.4 L Estimated Creat Clear 273.42 Estimated GFR 145 Magnesium 2.0 AST 40 H ALT 34 OB - PN: A/P Delivery Assessment and Plan (1) Pre-eclampsia, severe, condition: Status: Acute (2) Gestational diabetes: Status: Acute (3) Anemia: Status: Acute Plan Postoperative/post delivery Review: - Admitted for: IOL due to FGR at 8.5% and GDM diet controlled. - Laceration: None - Estimated blood loss: 25 mL - Urine output: adequate - Preop/pre delivery Hgb: 10.4 - Postop/post delivery Hgb: 10.3 Pre-Eclampsia with severe features ? Based on severe ranging BP ? BPs overnight: 110-120/70-80s ? Symptoms: none ? Magnesium: s/p 24 Magnesium for seizure ppx ? IV antihypertensives: currently unindicated ? PO antihypertensives: currently unindicated ? Pre-eclampsia labs on 01/25/24: Hgb 10.3 Plt 280 Cr 0.4 ALT 34 AST 40 GDA1 - 2hr gtt Postoperative care: - Diet: Advance as tolerated - Fluid: Encourage oral intake - Activity: Encourage ambulation and incentive spirometry - Pain: Acetaminophen, Ibuprofen - DVT prophylaxis: SCDs and TEDs when not ambulating. Discharge Planning - Follow up in 3-5 days for BP check in clinic - Follow Up: follow-up at 2 weeks and 6 weeks in clinic Baby's Status - Fetus: 8/9 - 2730 g - Female - Location: Bedside Dispo: Patient is POD#2. Need the following milestones: BP monitoring for 24 hours after d/c magnesium sulfate. Anticipate discharge POD#3.
[2024-01-25 12:59] VITALS: BP 128/72; PULSE 65; RESP 16; TEMP 36.9; O2SAT 99
[2024-01-25 16:07] VITALS: BP 131/84; PULSE 65; RESP 16; TEMP 36.7; O2SAT 99
[2024-01-25 20:23] VITALS: BP 126/83; PULSE 68; RESP 18; TEMP 37.2; O2SAT 98
[2024-01-26 01:20] VITALS: BP 127/83; PULSE 64; RESP 18; O2SAT 97
[2024-01-26] MEDS: IBUPROFEN 600 MG TABLET PO ×2 (01:23→07:30)
[2024-01-26 04:12] VITALS: BP 128/83; PULSE 70; RESP 18; O2SAT 97
[2024-01-26] MEDS: DOCUSATE SODIUM 100 MG CAPSULE PO (07:30)
[2024-01-26 07:31] VITALS: BP 127/79; PULSE 65; RESP 16; TEMP 36.6; O2SAT 98
[2024-01-26 09:27] LABS: Glucose Fasting 84 mg/dl (70-95)
[2024-01-26 09:43] LABS: Glucose 2 Hour 98 mg/dl (70-155)
--- NOTE | 2024-01-26 10:42 | PM.OBDSVD1 ---
DS: Providers Provider Time Seen by Provider: 10:42 Date Seen: 01/26/24 Date of admission: 01/22/24 16:31 Primary care physician: Not a Local Provider Admitting Clinician: Brittani Fonseca CNM Consults: 01/22/24 17:23 Consult to Copper Plate Lithographer [CONS] Routine Comment: buyers' agent needed, trasportation, friends drug/al Reason for Consult:: Social Service Consult Attending Physician on discharge: Queenie Adler CNM Date of Discharge: 01/26/24 DS: Diagnosis Discharge Diagnosis (1) Pre-eclampsia, severe, condition: Status: Acute (2) IUGR (intrauterine growth restriction): Status: Acute (3) Anemia: Status: Acute (4) Gestational diabetes: Status: Acute Exam Narrative: Exam Narrative: Physical exam: General: No acute distress Psych: Alert and oriented x4, full affect HEENT: Normocephalic, atraumatic Heart: Regular rate and rhythm, no murmur rub or gallop Lungs: Clear to auscultation bilaterally Abdomen: Normoactive bowel sounds, soft, no tenderness, rebound, or guarding, no masses. Uterus 2 cm below umbilicus Skin: No lesions or rashes Lower extremities: No edema or erythema Pelvic exam: Scant vaginal bleeding Const: Vital Signs, click to edit/add: Vital Signs - 24 hr 01/25/24 12:59 01/25/24 16:07 01/25/24 20:23 Temperature 98.5 F 98.1 F 98.9 F Pulse Rate [Pulse Oximeter] 65 65 68 Respiratory Rate 16 16 18 Blood Pressure [Ri ght Arm] 128/72 131/84 126/83 Pulse Oximetry 99 99 98 Oxygen Delivery Me thod Room Air Room Air Room Air 01/26/24 01:20 01/26/24 04:12 01/26/24 07:31 Temperature 97.9 F Pulse Rate [Pulse Oximeter] 64 70 65 Respiratory Rate 18 18 16 Blood Pressure [Ri ght Arm] 127/83 128/83 127/79 Pulse Oximetry 97 97 98 Oxygen Delivery Me thod Room Air Room Air Room Air OB - DS: Summary Hospital Course Hospital Course: The patient is a 18 year old at 38.1 weeks gestation that was admitted to the Center on 01/22/24 for IOL due to growth restriction and GDM A1. She had an uncomplicated vaginal delivery. She delivered a viable female . She is . the patient has done well. Overnight patient had no complaints. Her pain is well controlled on oral pain medications. She is tolerating a regular diet. She has passed flatus. She is ambulating without difficulty. Lochia is scant. She is urinating without pereira. Patient denies chest pain, SOB, n/v, headache, RUQ pain, vision changes, dizziness. S/p 24 hour of magnesium sulfate. BP wnl for over 24 hours after discontinuation of magnesium sulfate. In person Framer used for rounding Postoperative/post delivery Review: - Admitted for: IOL due to FGR at 8.5% and GDM diet controlled. - Laceration: None - Estimated blood loss: 25 mL - Urine output: adequate - Preop/pre delivery Hgb: 10.4 - Postop/post delivery Hgb: 10.3 Pre-Eclampsia with severe features ? Based on severe ranging BP ? BPs overnight: 110-120/70-80s ? Symptoms: none ? Magnesium: s/p 24 Magnesium for seizure ppx ? IV antihypertensives: currently unindicated ? PO antihypertensives: currently unindicated ? Pre-eclampsia labs on 01/25/24: Hgb 10.3 Plt 280 Cr 0.4 ALT 34 AST 40 GDMA1 - 2hr gtt with in normal limits on 01/26/24 (84/ 98) Postoperative care: - Diet: Advance as tolerated - Fluid: Encourage oral intake - Activity: Encourage ambulation and incentive spirometry - Pain: Acetaminophen, Ibuprofen - DVT prophylaxis: SCDs and TEDs when not ambulating. Discharge Planning - Follow up in 3-5 days for BP check in clinic - Follow Up: follow-up at 2 weeks and 6 weeks in clinic. She desires Mirena IUD. Baby's Status - Fetus: 8/9 - 2730 g - Female - Location: Bedside Dispo: Patient is POD#3. Anticipate discharge POD#3. Time spent discussing smoking cessation with patient: more than 10 minutes [place] Infant Gender: Female Time Spent with Patient Time attestation: Total time spent providing and/or coordinating discharge services: Time spent: Less than 30 minutes Discharge Plan Discharge Disposition: Home, Self-Care Date of Admission: 01/22/24 16:31 Primary Care Provider: Provider,Not a Local Condition: Stable Anticipated Discharge Date/Time: 01/26/24 10:23 Discharge Medications: New Dermoplast (with menthol) 20-0.5 % Aerosol 1 spray topical QID PRN30 Days Qty: 85 0RF acetaminophen 500 mg Tablet 1,000 mg PO Q6H PRN30 Days Qty: 60 0RF ferrous sulfate 325 mg (65 mg iron) Tablet 325 mg PO Q48H 30 Days Qty: 15 0RF docusate sodium 100 mg Capsule 100 mg PO DAILY 30 Days Qty: 30 0RF ibuprofen 600 mg Tablet 600 mg PO Q6H PRN30 Days Qty: 60 0RF Lanolin (HPA) 100 % Cream 1 applic topical Q1H PRN30 Days Qty: 21 0RF simethicone 80 mg Tablet,Chewable 80 - 160 mg PO Q4H PRN (Reason: gas) 30 Days Qty: 60 0RF Continued DHA 200 mg capsule 200 mg PO DAILY ferrous sulfate 325 mg (65 mg iron) tablet 325 mg PO Q OTHER DAY Qty: 90 1RF Discontinued (DME) lancets Misc See Rx Instructions .MEDSUPPLY Qty: 200 3RF Rx Instructions: Test blood sugar 4 times daily. (DME) Test Strips Misc See Rx Instructions .MEDSUPPLY Qty: 200 3RF Rx Instructions: Test blood sugar 4 times daily. (DME) Blood Glucose Meter Misc See Rx Instructions .MEDSUPPLY Qty: 1 0RF Rx Instructions: As directed Discharge Orders: Discharge Order (Routine); Ordered 01/26/24 Ordered By: Jocelynn Cameron Patient Education: Vaginal Delivery (DC) Follow Up Appointments: Provider,Not a Local [Primary Care Provider] - [facility] Discharge Comments: Discharge instructions were reviewed with the patient including signs and symptoms of infection and home going medications. Lifting Restrictions: 20 pounds for [address] while taking narcotic pain medication: Approximately 1 week. Off Work or School for 6 weeks. Nothing vaginally for 6 weeks Symptoms to report to doctor: -Bleeding that saturates more than one pad per hour ?-Passing clots larger than the size of a golf ball ?-Pain not relieved by prescribed medication ?-Fever above 100.4 degrees Fahrenheit ?-A foul vaginal odor ?-Difficulty in emotions, mood and functions ?-Thoughts of hurting yourself and/or ?-Painful, reddened area in your breast ?-Any drainage, redness or tenderness in your IV/epidural site ?-Severe headache that doesn't improve after taking medications ?-Changes in vision, including temporary loss of vision, blurred vision, and/or light sensitivity ?-Upper abdominal pain (usually under ribs on the right side) ?-Decrease in urination or painful, frequent urinating ?-Chest pain ?-Shortness of breath ?-Tenderness or pain with redness and/swelling in the calf(s) of your leg Follow Up with a [facility] provider: - 1 week BP check for severe pre-eclampsia - 2 week visit: Answer concerns for infant care, screen for anxiety/depression. - 6 week visit: Annual exam. Patient desires MIRENA IUD insertion. 2hr gtt consultation services are available to all mothers and babies for the first year after delivery.? To make an appointment, please call [phone].
== END 2024-01-26 11:00 | disposition home or self-care (01) | DRG 807 ==
PROVIDERS: Advanced Practice Midwife; Obstetrics & Gynecology; Admitting Provider Advanced Practice Midwife; Visit Provider Advanced Practice Midwife
DX: O24.420 Gestational diabetes mellitus in childbirth, diet controlled (principal); Z37.0 Single live birth; O99.02 Anemia complicating childbirth; D64.9 Anemia, unspecified; Z3A.38 38 weeks gestation of pregnancy; O99.013 Anemia complicating pregnancy, third trimester; O14.15 Severe pre-eclampsia, complicating the puerperium
CPT/HCPCS: 01967; 36415; 59200; 82565; 82570; 82947; 82950; 83735; 84156; 84450; 84460; 84520; 85018; 85025; 85027; 86592; 86850; 86900; 86901; 88307; T1013; A9270; J2371; J2405; J2795; J3475; J7120

== ENCOUNTER 2024-12-30 08:32 | Outpatient (CLI) | payer MEDICAID, SELFPAY ==
[2024-12-30 11:56] LABS: Chlamydia DNA Amplified* NOT DETECTED (No Detected); GC DNA Amplified* NOT DETECTED (No Detected)
== END 2024-12-30 08:33 | disposition home or self-care (01) ==
PROVIDERS: PCP Registered Nurse; Visit Provider Registered Nurse
DX: Z00.01 Encounter for general adult medical examination with abnormal findings (principal); N91.2 Amenorrhea, unspecified; F41.1 Generalized anxiety disorder; Z13.6 Encounter for screening for cardiovascular disorders; Z11.3 Encounter for screening for infections with a predominantly sexual mode of transmission; Z12.4 Encounter for screening for malignant neoplasm of cervix
CPT/HCPCS: 80061; 84443; 84702; 87491; 87591; 87624; 87625; 88141; 88142

== ENCOUNTER 2025-01-11 11:26 | Outpatient (CLI) | payer MEDICAID, SELFPAY ==
--- NOTE | 2025-01-11 11:15 | CRLHL7_ITS ---
For Patients: As a result of the Century Cures Act, medical imaging exams and procedure reports are released immediately into your electronic medical record. You may view this report before your referring provider. If you have questions, please contact your health care provider. INDICATION: Lost IUD strings COMPARISON: none TECHNIQUE: 2D lanza scale and color Doppler images were acquired of the pelvis using a transabdominal and transvaginal approach. FINDINGS: Sonographic images demonstrate a normal size and smooth outer contour of the uterus. Uterus measures 7.5 cm in length by 3.7 cm in AP diameter by 5.0 cm in transverse dimension. The myometrium has a normal uniform echotexture. IUD is present in good position within the endometrial cavity. Endometrial thickness 7 millimeters. The right ovary measures 4.1 x 2.3 x 2.6 cm in size and the left ovary measures 3.2 x 2.0 x 2.6 cm. The ovaries demonstrate normal arterial and venous blood flow on color Doppler analysis. There are no suspicious fluid collections within the cul-de-sac. IMPRESSION: IUD in good position within the endometrial canal. Dictated by Sabas Mack MD @ 01/11/2025 12:46:28 PM (Electronically Signed)
== END 2025-01-11 11:27 | disposition home or self-care (01) ==
LOC: US 11:28
PROVIDERS: PCP Registered Nurse; Visit Provider Registered Nurse
DX: T83.32XA Displacement of intrauterine contraceptive device, initial encounter (principal)
CPT/HCPCS: 76830; 76856; 93976; T1013